=== PATIENT | male | born 1980 | race Caucasian/White ===

== ENCOUNTER 2017-02-22 17:15 | Emergency (ER) | payer OTHER ==
[~2017-02-22] VITALS: Ht 175.3 cm; Wt 192.0 kg
[2017-02-22 17:24] VITALS: BP 166/103; PULSE 88; RESP 16; O2SAT 99
--- NOTE | 2017-02-22 18:19 | DRSVH ---
PROCEDURE: X-RAY CHEST, TWO VIEWS ([id number]) INDICATIONS: CHEST PAIN TECHNIQUE: 2 views of the chest were acquired. COMPARISON: None. FINDINGS: Surgical changes and devices: None. Lungs and pleura: No pleural effusions or pneumothorax. Lungs are clear. Mediastinum: Mediastinal contours are normal. Heart size is normal. Bones and chest wall: No suspicious bony abnormalities. Soft tissues appear unremarkable. IMPRESSION: No acute disease Dictated by: Marco Gorman M.D. on 02/22/2017 at 18:16 Approved by: Marco Gorman M.D. on 02/22/2017 at 18:18
[2017-02-22 18:24] LABS: BASOPHILS % (AUTO) 0.3 % (0-3); EOSINOPHILS % (AUTO) 2.2 % (0-5); MONOCYTES % (AUTO) 11.6 % (4-12); Mean Corpuscular Hemoglobin 28.3 pg (27.0-35.0); Mean Corpuscular Volume 79.5 fL (81-100); Platelet Count 254 bil/L (150-400)
[2017-02-22 18:53] LABS: TROPONIN T < 0.010 ug/L (0.0-0.011)
--- NOTE | 2017-02-22 19:13 | ED.REPORT ---
HPI-Chest Pain Under 40 Date of Service Feb 22, 2017 ED Provider: Dr. Ovi Raygoza MD A 36 year old male with a history of hypertension presents to the ED complaining of intermittent episodes of chest pain that began 2 days ago. Patient reports that he has been experiencing multiple panic attacks with associated shortness of breath, diaphoresis, blurred vision and extremity weakness over the last few days. He has never experienced a panic attack prior to the last week. He reports that he had to stop driving during one of the episodes. Nursing Notes Stated Complaint: CHEST PAIN, LEFT SHOULDER PAIN Chief Complaint: General Complaint Nursing Notes Reviewed: Yes Allergies: Coded Allergies: No Known Allergies (Unverified , 02/22/17) General Time Seen by MD: 19:12 Chief Complaint Chest pain Hx Obtained From: Patient Arrived By: Walk-in Sudden in Onset?: No Onset Occurred: 2 days ago Symptom Duration: Since onset Location: : Chest left: Chest right Quality: Painful Migration/Movement: Reports: None Severity: Current: Moderate Severity: Maximum: Moderate Associated with: Reports: Diaphoresis, Numbness/tingling, Shortness of breath, Weakness Pertinent Negative: Pt denies other symptoms Recent Healthcare: No recent doctor visit, No recent hospitalization Risk Factors )( CAD Risk Stratification SmokingNo Amphetamine, No Cocaine, No Diabetes mellitus, No Family history, No Hyperlipidemia, No Hypertension, No Known CAD Risk factors reviewed TAD Risk Stratification No 1st degree relative, No Aortic valve disease, No Coarctation of aorta, No Isamar-Danlos syndrome, No High intensity wt lifting, No Hypertension, No Inflamm dx / vasculitis, No Loeys-Jamal syndrome, No Marfan's syndrome, No Pre- exist aortic aneurysm, No Turners Syndrome No risk factors )( PE Risk Stratification No Coagulation Disorder, No Estrogen Medicine / BCP's, No [place], No Immobilization, No Malignancy, No , No , No Previous DVT, No Previous PE, No Surgery Last 60 Days, No Trauma Risk factors reviewed, No risk factors HEART Score HEART for MACE Score: 0-3 (low risk 0.9%-1.7%) Past Medical History Past Medical History Hypertension Past Surgical History None reported. Smoking History Unknown if Ever Smoker Social History Other Social History: Good social support, Local resident Ambulatory Status Independent Review of Systems Respiratory: Reports: Shortness of breath Cardiovascular: Reports: Chest pain Skin: Reports Diaphoresis Neurologic: Reports: Numbness (Upper Extremities), Weakness (Upper Extremities) Psychiatric: Reports: Anxiety Complete sys rev & neg: except as marked. Eyes: Reports: Blurred bilateral Physical Exam Initial Vital Signs Vital Signs (First) Date Time Temp Pulse Resp B/P Pulse Ox O2 Delivery O2 Flow Rate FiO2 02/22/17 17:24 37.1 88 16 166/103 99 Room Air Initial VS: Reviewed Head / Eyes: Atraumatic, Normocephalic, PERRL Neck: Supple, Non-tender, Full range of motion Extremities: Vascular intact, Neuro intact, No swelling, No tenderness Skin: Warm, Dry, No cyanosis Neurologic: Alert, Oriented, Nonfocal Psychiatric: Mood/affect normal, Behavior normal, Normal thought content General/Constitutional: Awake, Alert Behavior: Positive: Anxious Respiratory / Chest: Atraumatic, Breath sounds NL, Breath sounds = bilat, No respiratory distress Cardiovascular: Heart rate NL, Regular rhythm, Heart sounds NL Abdomen: Atraumatic, Soft Interpretation & Diagnostics Lab Results Interpretation Result Diagram: 02/22/170 02/22/17 181 Test 02/22/17 18:10 02/22/17 22:15 White Blood Count 6.5th/mm3 (3.8-10.1) Red Blood Count 5.62mil/mm3 (4.40-5.80) Hemoglobin 15.9g/dL (13.8-17.2) Hematocrit 44.7% (41.0-50.0) Mean Corpuscular Volume 79.5fL (81-100) Mean Corpuscular Hemoglobin 28.3pg (27.0-35.0) Mean Corpuscular Hemoglobin Concent 35.6% (32.0-37.0) Red Cell Distribution Width 12.6% (12.3-15.4) Platelet Count 254bil/L (150-400) Neutrophils (%) (Auto) 58.0% (40-74) Lymphocytes (%) (Auto) 27.6% (14-46) Monocytes (%) (Auto) 11.6% (4-12) Eosinophils (%) (Auto) 2.2% (0-5) Basophils (%) (Auto) 0.3% (0-3) Sodium Level 138mEq/L (134-144) Potassium Level 3.9mEq/L (3.5-5.2) Chloride Level 101mEq/L (97-108) Carbon Dioxide Level 20mmol/L (18-29) Blood Urea Nitrogen 12mg/dL (6-20) Creatinine 0.96mg/dL (0.76-1.27) Estimat Glomerular Filtration Rate 94mL/min (>59) Glucose Level 103mg/dL (60-99) Calcium Level 9.3mg/dL (8.5-10.1) Magnesium Level 2.0mg/dL (1.6-2.6) Total Bilirubin 0.3mg/dL (0.0-1.2) Aspartate Amino Transf (AST/SGOT) 41U/L (0-50) Alanine Aminotransferase (ALT/SGPT) 53U/L (0-44) Alkaline Phosphatase 62U/L (25-150) Total Protein 7.1g/dL (6.4-8.4) Albumin 4.2g/dL (3.4-5.0) Hold Zamudio Top Tube Received (Received) Troponin T 0.010ug/L (0.0-0.011) Point of Care Testing: Troponin normal ECG Interpretation ECG Interpretation: Sinus Rhythm Rate [address] changes Time: 19:43 Interpreted by: ED physician X-Ray Chest Interpretation Chest Xray Interpretation: IMPRESSION: No acute disease Dictated by: Marco Gorman M.D. on 02/22/2017 at 18:16 Interpretation / Wet Read by: Interpret - Radiologist CT Head Interpretation IMPRESSION: No acute intracranial process Dictated by: Marco Gorman M.D. on 02/22/2017 at 21:12 Re-Eval/Medical Decision Med Decision/Clinical Course Dissection ruled out based on history physical examination and brisk. MA ruled out based and several troponins. PE very unlikely based on a negative pulmonary embolus rule out criteria. Wells score is low risk. No signs or symptoms consistent with PE. This is classic anxiety. Anxiolytics to care of all the symptoms. He will be discharged home with a short course of lorazepam and close outpatient follow-up. Re-Evaluation/Progress : Time of Eval: 21:30 Patient Status: Condition improved Re-Evaluation/Progress Note: His symptoms have improved. He is informed of his results and diagnosis. All questions about the intended treatment plan are addressed. He understands and agrees with the plan. Counseled Regarding: Diagnosis, Lab results, Need for follow-up, When/why to return to ED Discharge & Departure Primary Impression: Chest pain Chest pain type: unspecified Qualified Code: R07.9 - Chest pain, unspecified Additional Impression: Anxiety Disposition: Home Discharge Condition All VS Reviewed: Yes Condition: Improved Patient Instructions: Anxiety (ED), Chest Pain (ED) Additional Instructions: Thank you for trusting us with your care this evening. Your emergency department results including EKG, lab work, head CT and chest X- ray are reassuring that there is no dangerous cause for concern at this time and I believe that your symptoms are likely due to anxiety. Take 1 Xanax every 8 hours as needed for anxiety. Schedule a follow up appointment with your primary care physician in the next 2- 3 days for a recheck. If your symptoms persist over the next 2 weeks, you may want to speak with your primary care physician about long-term anxiety medication. Please return to the emergency department if you begin to develop any new or worsening conditions including any difficulty breathing, one-sided numbness/ tingling, worsening chest pain, cold sweats, nausea or vomiting. Please do not use any other sedative medications or substances while on this medication. Please do not drive as this medication causes drowsiness. Referrals: [facility] (PCP) [facility] Scribe Attestation Portions of this note were transcribed by oTmas Mak. I, Dr. Raygoza personally performed the history, physical exam and medical decision-making; I reviewed and confirmed the accuracy of the information in the transcribed note. Signed by: Armando Carrasquillo, 02/22/17 2130. Ovi Raygoza DO Feb 22, 2017 19:13 TOMAS MAK Feb 22, 2017 19:20
[2017-02-22] MEDS ORDERED: 0.9% Sodium Chloride 1,000 ML IV SCH (19:50)
[2017-02-22 21:14] VITALS: BP 136/96; PULSE 73; RESP 20; O2SAT 98
--- NOTE | 2017-02-22 21:15 | DRSVH ---
PROCEDURE: CT BRAIN WITHOUT CONTRAST ([id number]) INDICATIONS: blurred vision, facial and hand paresthesias TECHNIQUE: Noncontrast 4.5 mm thick angled axial sections acquired from the foramen magnum to the vertex, with c oronal reformats. COMPARISON: None. FINDINGS: Image quality: Excellent. CSF spaces: Basal cisterns are patent. No extra-axial fluid collections. Ventricles are normal in size and shape. Brain: No midline shift. No intracranial masses or hemorrhage. Enriquez-white matter interface is norm al. Skull and face: Calvarium and visualized facial bones are intact, without suspicious lesions. Sinuses: Visualized sinuses and mastoids are clear. IMPRESSION: No acute intracranial process Dictated by: Marco Gorman M.D. on 02/22/2017 at 21:12 Approved by: Marco Gorman M.D. on 02/22/2017 at 21:13
[2017-02-22] MEDS ORDERED: _LORazepam 1 mg Tablet PO PRN (22:20)
[2017-02-22 22:57] VITALS: BP 129/91; PULSE 76; RESP 18; O2SAT 97
== END 2017-02-22 23:00 | disposition home or self-care (01) ==
LOC: SED 17:15
DX: R07.9 Chest pain, unspecified (principal); F41.0 Panic disorder [episodic paroxysmal anxiety]; R06.02 Shortness of breath; R61 Generalized hyperhidrosis; H53.8 Other visual disturbances; M62.81 Muscle weakness (generalized); I10 Essential (primary) hypertension
CPT/HCPCS: 36415; 70450; 71020; 80053; 83735; 84484; 85025; 93005; 96361; 96374; 99285; J2060; J7030